=== PATIENT | male | born 2000 | race Caucasian/White ===

== ENCOUNTER → 2024-07-30 10:19 | Outpatient (BNVA) | payer BC, SELFPAY | PROVIDERS: Visit Provider Psychiatry & Neurology Psychiatry | DX: Z79.899 Other long term (current) drug therapy (principal) | CPT/HCPCS: 80053; 80061; 83036; 84443; 85025 ==

== ENCOUNTER 2024-10-28 20:21 | Inpatient (IN) | payer BC, MEDICAID, SELFPAY ==
[2024-10-28 20:27] VITALS: BP 172/103; PULSE 92; RESP 17; TEMP 37.1; O2SAT 99; BMI 25.2
--- NOTE | 2024-10-28 20:58 | ED.C_ITS ---
HPI - Psych 2 General: Chief Complaint: Psychiatric Symptoms Stated Complaint: SI Time Seen by Provider: 10/28/24 20:36 History of Present Illness: 24-year-old male patient presenting with depression, suicidal ideation. He had a plan to slit his wrist. He has medications including buspirone citalopram and trazodone. He has not used these medications because of side effect he says. He has never been admitted for depression to the hospital. He denies intoxication. Related Data Previous Rx's ?Medication ?Instructions ?Recorded buspirone 5 mg tablet 5 mg PO BID PRN anxiety #60 tabs 09/17/24 citalopram 20 mg tablet (Celexa) 20 mg PO DAILY #30 ta bs 09/17/24 trazodone 50 mg tablet 50 mg PO DAILY PRN insomnia #30 09/17/24 tabs Allergies Allergy/AdvReac Type Severity Reaction Status Date / Time No Known Allergies Allergy Verified 09/17/24 17:02 [facility] ED 2 PFSH: Medical History Psychiatric care Physical Exam 2 Const: COMMON NORMALS: no acute distress GENERAL APPEARANCE: cooperative; not ill appearing and not frail appearing HENMT: COMMON NORMALS: normocephalic, atraumatic and Normal external nose present HEAD & SCALP: normocephalic and atraumatic FACE & SINUS: normal facial exam and face symmetric NOSE: Normal external nose present Eye: COMMON NORMALS: Equal, round and reactive pupils present and EOMs intact bilaterally PUPIL: Yes Equal, round and reactive pupils present Neck/C-Spine: GENERAL: Yes trachea midline Chest: CHEST: Yes Symmetrical chest wall rise Resp: COMMON NORMALS: normal respiratory effort, No retractions, No use of accessory muscles and clear to auscultation bilaterally AUSCULTATION: clear to auscultation bilaterally Cardio: COMMON NORMALS: regular rate and regular rhythm RATE: regular rate RHYTHM: regular rhythm GI: COMMON NORMALS: Normal to inspection, nondistended, normoactive bowel sounds present Extremity: COMMON NORMALS: no pedal edema Neuro: KRISTY COMA SCALE: document GCS findings [place] coma scale eye opening: Spontaneous Kristy coma scale verbal response: Orientated Kristy coma scale motor response: Obey commands Kristy coma scale total score: 15 S ENSORY EXAM: Yes extremities (intact) Psych: COMMON NORMALS: speech normal SPEECH: Yes normal speech Skin: COMMON NORMALS: no rashes or lesions noted GENERAL SKIN EXAM: no rashes or lesions noted Course 2 Vital Signs: Vital signs: Vital Signs Temperature 98.8 F 10/28/24 20:27 Pulse Rate 79 10/28/24 23:04 Respiratory Rate 16 10/28/24 23:04 Blood Pressure 157/99 10/28/24 23:04 Pulse Oximetry 100 10/28/24 23:04 Oxygen Delivery Me thod Room Air 10/28/24 20:27 MDM - Psych Medical Decision Making Medically the patient is stable. We have a bed available here. Affidavit written. He is willing to stay. He will be admitted to NPU. Lab Data 10/28/24 21:21 10/28/24 21:21 Laboratory Results WBC 10.04 10^3/uL (3.29-11.43) 10/28/24 21: RBC 4.60 10^6/uL (3.85-5.65) 10/28/24 21:21 Hgb 14.40 g/dL (11.27-16.99) 10/28/24 21: Hct 43.6 % (37-53) 10/28/24 21: MCV 94.8 fl (82-101) 10/28/24 21: MCH 31.3 pg (27-33) 10/28/24 21: MCHC 33.0 g/dL (30-55) 10/28/24 21: RDW 12.6 % (12.1-15.1) 10/28/24 21: Plt Count 285 10^3/cmm (157-399) 10/28/24 21:21 MPV 9.3 fL (7.4-10.4) 10/28/24 21: Neut % (Auto) 73.8 % 10/28/24 21: Lymph % (Auto) 15.1 % 10/28/24 21: Grand % (Auto) 10.0 % 10/28/24 21: Eos % (Auto) 0.3 % 10/28/24 21: Baso % (Auto) 0.4 % 10/28/24: Neut # (Auto) 7.41 10^3/uL (1.8-7.7) 10/28/24 21:21 Lymph # (Auto) 1.5 10^3/uL (0.8-4.8) 10/28/24 21:21 Grand # (Auto) 1.0 10^3/uL (0.2-0.9) H 10/28/24 21:21 Eos # (Auto) 0.0 10^3/uL (0.0-0.8) 10/28/24 21:21 Baso # (Auto) 0.0 10^3/uL (0.0-0.1) 10/28/24 21:21 Nucleated RBC % (auto) 0 % 10/28/24 21:21 Nucleated RBCs # 0.0 /100WBC 10/28/24 21:21 Sodium 140 mmol/L (136-145) 10/28/24 21:21 Potassium 3.6 mmol/L (3.5-5.1) 10/28/24 21:21 Chloride 103 mmol/L (98-107) 10/28/24 21:21 Carbon Dioxide 25 mmol/L (22-29) 10/28/24 21:21 Anion Gap 15.6 (5-19) 10/28/24 21:21 BUN 10 mg/dL (6-20) 10/28/24 21:21 Creatinine 0.8 mg/dL (0.7-1.2) 10/28/24 21:21 GFR Calculation 120.9 mL/min (90-130) 10/28/24 21:21 Glucose 138 mg/dL (65-115) H 10/28/24 21:21 Calculated Osmolality 291 mOsm/kg (285-295) 10/28/24 21:21 Calcium 9.2 mg/dL (8.5-10.5) 10/28/24 21:21 Total Bilirubin 0.9 mg/dL (0.15-1.2) 10/28/24 21:21 AST 13 U/L (0-40) 10/28/24 21:21 ALT 16 U/L (0-41) 10/28/24 21:21 Alkaline Phosphatase 69 U/L (40-130) 10/28/24 21:21 Total Protein 7.4 g/dL (6.6-8.7) 10/28/24 21:21 Albumin 4.7 g/dL (3.5-5.2) 10/28/24 21:21 Globulin 2.7 g/dL (1.3-4.6) 10/28/24 21:21 Urine Color Yellow (Yellow) 10/28/24 21:05 Urine Appearance Clear (CLEAR) 10/28/24 21:05 Urine pH 5.5 (5-7) 10/28/24 21:05 Ur Specific [place] 1.023 (1.005-1.030) 10/28/24 21:05 Urine Protein Negative (Negative) 10/28/24 21:05 Urine Glucose (UA) Negative (Normal) 10/28/24 21:05 Urine Ketones Trace (Negative) 10/28/24 21:05 Urine Blood Negative (Negative) 10/28/24 21:05 Urine Nitrate Negative (Negative) 10/28/24 21: Urine Bilirubin Negative (Negative) 10/28/24 21:05 Urine Urobilinogen 1.0 mg/dL (Negative) 10/28/24 21:05 Ur Leukocyte Esterase Negative (Negative) 10/28/24 21:05 Urine RBC 0-2 /hpf (0-2) 10/28/24 21:05 Urine WBC 0-5 /hpf (0-5) 10/28/24 21:05 Ur Squamous Epith Cells 0-5 /hpf (0-5) 10/28/24 21:05 Amorphous Sediment Not Reportable 10/28/24 21:05 Urine Bacteria None seen /hpf (NONE) 10/28/24 21:05 Hyaline Casts 0.40 /lpf 10/28/24 21:05 Salicylates < 0.3 mg/dL (3-10) L 10/28/24 21:21 Urine Opiates Screen Negative ng/mL (Negative) 10/28/24 21:05 Acetaminophen < 5.0 ug/mL (10-30) L 10/28/24 21:21 Ur Barbiturates Screen Negative ng/mL (Negative) 10/28/24 21:05 Ur Phencyclidine Scrn Negative ng/mL (Negative) 10/28/24 21:05 Ur Amphetamines Screen Positive ng/mL (Negative) H 10/28/24 21:05 U Benzodiazepines Scrn Negative ng/mL (Negative) 10/28/24 21:05 Urine Cocaine Screen Negative ng/mL (Negative) 10/28/24 21:05 U Marijuana (THC) Screen Negative ng/mL (Negative) 10/28/24 21:05 Ethyl Alcohol < 10 mg/dL (0-10) 10/28/24 21:21 No radiology studies performed this visit Discharge Plan Discharge Patient Disposition: Admitted As Inpatient Admit Provider: Delio Carbone Clinical Impression: Suicidal ideation Condition: Stable Coding Level of Care Code ED Special Procedures Tech for Janette Packer
[2024-10-28 21:21] LABS: Bilirubin Urine Negative (Negative); Blood Urine Negative (Negative); Glucose Urine UA Negative (Normal); Ketones Urine Trace (Negative); Leukocyte Esterase Urine Negative (Negative); Nitrate Urine Negative (Negative); Protein Urine Negative (Negative); Specific Gravity, Urine 1.023 (1.005-1.030); Urine Appearance Clear (CLEAR); Urine Color Yellow (Yellow); pH Urine 5.5 (5-7)
[2024-10-28 21:27] LABS: Add Urine Microscopic? YES; Bacteria Urine None Seen /hpf; RBC Urine 0-2 /hpf (0-2); Squamous Epithelial Cell Urine 0-5 /hpf (0-5); WBC Urine 0-5 /hpf (0-5)
[2024-10-28 21:28] LABS: Amphetamines Screen Urine Positive (Negative); Barbiturates Screen Urine Negative (Negative); Benzodiazepines Screen Urine Negative (Negative); Cocaine Screen Urine Negative (Negative); Opiate Screen Urine Negative (Negative); PCP Screen Urine Negative (Negative); THC Screen Urine Negative (Negative)
[2024-10-28 21:34] LABS: Basophils % 0.4 %; Eosinophils % 0.3 %; Hematocrit 43.6 % (37-53); Lymphocytes # 1.5 10^3/uL (0.8-4.8); Lymphocytes % 15.1 %; Mean Corpuscular Hemoglobin 31.3 pg (27-33); Mean Corpuscular Volume 94.8 fl (82-101); Mean Platelet Volume 9.3 fL (7.4-10.4); Neutrophils # 7.41 10^3/uL (1.8-7.7); Neutrophils % 73.8 %; Nucleated Red Blood Cells % 0 %; Platelet Count 285 10^3/cmm (157-399); Red Cell Distribution Width 12.6 % (12.1-15.1); White Blood Count 10.04 10^3/uL (3.29-11.43)
[2024-10-28 21:44] LABS: Alanine Aminotransferase 16 U/L (0-41); Albumin Level 4.7 g/dL (3.5-5.2); Alkaline Phosphatase 69 U/L (40-130); Anion Gap 15.6 (5-19); Aspartate Amino Transferase 13 U/L (0-40); Blood Urea Nitrogen 10 mg/dL (6-20); Calcium 9.2 mg/dL (8.5-10.5); Carbon Dioxide 25 mmol/L (22-29); Chloride 103 mmol/L (98-107); Creatinine Clr Calc Pharmacy 136.6284; Globulin 2.7 g/dL (1.3-4.6); Glomerular Filtration Rate 120.9 mL/min (90-130); Glucose 138 mg/dL (65-115); Osmolality Calculated 291 mOsm/kg (285-295); Potassium 3.6 mmol/L (3.5-5.1); Sodium 140 mmol/L (136-145); Total Bilirubin 0.9 mg/dL (0.15-1.2); Total Protein 7.4 g/dL (6.6-8.7)
[2024-10-28 21:45] LABS: Acetaminophen < 5.0 ug/mL (10-30); Alcohol Level < 10 mg/dL (0-10); Salicylate < 0.3 mg/dL (3-10)
[2024-10-28] MEDS: nicotine 21 mg Patch 1 PATCH TRANSDERMA (23:01)
[2024-10-28 23:04] VITALS: BP 157/99; PULSE 79; RESP 16; O2SAT 100
--- NOTE | 2024-10-28 23:21 | PC.NURSE ---
nicotine patch removed from patient left upper arm as requested by psychiatric provider 2ndary to possible nightmares. pt instructed of accessibility of lozenges and gum. pt denies further questions/cocnerns at this time.
[2024-10-29 00:11] VITALS: BP 156/85; PULSE 75; RESP 18; TEMP 37.2; O2SAT 100
[2024-10-29] MEDS: nicotine 4 mg lozenge MUCOUS MEM ×2 (00:49→17:35)
[2024-10-29 06:00] VITALS: BP 133/74; PULSE 68; RESP 17; TEMP 36.6; O2SAT 98
[2024-10-29] MEDS: nicotine 21 mg Patch 1 PATCH TRANSDERMA (07:05)
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
[2024-10-29] MEDS: hyDROXYzine 25 mg Capsule 50 MG PO ×2 (11:46→19:53)
[2024-10-29 14:00] VITALS: BP 132/81; PULSE 67; RESP 18; TEMP 36.3; O2SAT 98
[2024-10-29 19:22] VITALS: BP 123/64; PULSE 78; RESP 16; TEMP 36.6; O2SAT 97
[2024-10-30 06:00] VITALS: BP 129/76; PULSE 71; RESP 16; O2SAT 98
[2024-10-30] MEDS: nicotine 4 mg lozenge MUCOUS MEM ×4 (06:27→20:44)
[2024-10-30] MEDS: buPROPion XL (24 HR) 150 mg Tablet PO (08:46)
--- NOTE | 2024-10-30 10:00 | P.NPUPN_ITS ---
Subjective NPU 2 Subjective: Patient presented today reporting that he feels like things have been improving with the initiation of the medication. He denies any issues with the medication and reports that he is really happy because it feels very different than when he was taking the Celexa. We discussed monitoring his improvement for a little while longer and working with the social work team on appropriate follow-up. He denied any side effects of the medication. Mental Status Exam 2 MSE Comments: This is a well-nourished, well-developed, white male, in hospital scrubs with adequate grooming and limited eye contact. No abnormal movements. Cooperative with exam in mild distress. Speech was decreased rate and volume. Mood described depressed feeling the medication is working; affect congruent. Thought process, organized. Thought content: patient denied current suicidal or homicidal ideation but was having some thoughts about suicide prior to admission; patient denied delusions and none were noted; patient denied any auditory or visual hallucinations. Attention, concentration, and memory appeared intact, but none were formally tested. He was alert and oriented times three. Insight appears fair, but judgment is poor. Impulse control is impaired. Vitals/I&O/Wt Last Vital Signs Temp 97.8 F 10/29/24 19:22 Pulse 71 10/30/24 06:00 Resp 16 10/30/24 06:00 BP 129/76 10/30/24 06:00 Pulse Ox 98 10/30/24 06:00 O2 Del Method Room Air 10/29/24 14:00 Weight last 48 hrs Weight 71.033 kg Data NPU 10/28/24 21:21 10/28/24 21:21 A&P Assessment and plan (1) Methamphetamine abuse in remission: (2) Legal problem: (3) Suicidal ideation: (4) Major depressive disorder, recurrent: Plan This is a 24-year-old white male with a significant history of addiction as well as depression and anxiety with treatment earlier this year that he discontinued and then attempted to restart those medications with a poor outcome who presents with suicidal ideation and a desire to initiate medication that might be helpful for his symptoms. He endorses significant sobriety without any concerns for use over the past year. 1. Encourage individual, group and milieu therapy. 2. Recommend sober living treatment at the highest level of care to which the patient is willing to commit. 3. Continue q-15 minute checks for safety 4. Started Wellbutrin XL 150 mg every morning. 5. Obtain collateral information. PDMP PDMP Reviewed: Not Reviewed Involuntary Hold Information 2 Hold Status: Date/Time Hold Expires: 10/31/25 Attestations NPU 2 Medical Necessity Statement*: Inpatient hospitalization is medically necessary and the clinically appropriate intervention at this time.? We will monitor/initiate medications and make changes as indicated.? The patient?s likely length of stay 2-4 days. Coding Level of Care Code Acute Code for [facility] Fwd Diagnoses Methamphetamine abuse in remission F15.11 Legal problem Z65.3 Suicidal ideation R45.851 Major depressive disorder, recurrent F33.9
[2024-10-30 14:00] VITALS: BP 127/75; PULSE 77; RESP 18; TEMP 37; O2SAT 97
[2024-10-30 19:43] VITALS: BP 128/78; PULSE 88; RESP 17; TEMP 36.7; O2SAT 96
[2024-10-30] MEDS: hyDROXYzine 25 mg Capsule 50 MG PO (20:12)
[2024-10-30] MEDS: trazodone 50 mg Tablet PO (20:12)
[2024-10-31 06:00] VITALS: BP 127/86; PULSE 78; RESP 18; TEMP 36.6; O2SAT 98
[2024-10-31] MEDS: nicotine 4 mg lozenge MUCOUS MEM ×2 (07:40→11:47)
[2024-10-31] MEDS: buPROPion XL (24 HR) 150 mg Tablet PO (09:18)
[2024-10-31 14:00] VITALS: BP 126/79; PULSE 67; RESP 18; TEMP 36.6; O2SAT 97
[2024-10-31] MEDS: nicotine 21 mg Patch 1 PATCH TRANSDERMA (14:47)
--- NOTE | 2024-10-31 18:31 | P.NPUPN_ITS ---
Subjective NPU 2 Subjective: Patient presented today reporting that things are going well. He endorsed that he was having no difficulties adjusting to the medication and that the medications seem to be working well. He endorsed that he feels that he will be able to manage things moving forward and we discussed the risks, benefits and alternatives about discharge in the morning and he understood and agreed to proceed as is documented in this note. Mental Status Exam 2 MSE Comments: This is a well-nourished, well-developed, white male, in hospital scrubs with adequate grooming and limited eye contact. No abnormal movements. Cooperative with exam in mild distress. Speech was more normal rate and volume. Mood described better; affect congruent. Thought process, organized. Thought content: patient denied current suicidal or homicidal ideation but was having some thoughts about suicide prior to admission; patient denied delusions and none were noted; patient denied any auditory or visual hallucinations. Attention, concentration, and memory appeared intact, but none were formally tested. He was alert and oriented times three. Insight appears fair, but judgment is poor. Impulse control is improving. Vitals/I&O/Wt Last Vital Signs Temp 97.9 F 10/31/24 14:00 Pulse 67 10/31/24 14:00 Resp 18 10/31/24 14:00 BP 126/79 10/31/24 14:00 Pulse Ox 97 10/31/24 14:00 O2 Del Method Room Air 10/31/24 06:00 Data NPU 10/28/24 21:21 10/28/24 21:21 A&P Assessment and plan (1) Methamphetamine abuse in remission: (2) Legal problem: (3) Suicidal ideation: (4) Major depressive disorder, recurrent: Plan This is a 24-year-old white male with a significant history of addiction as well as depression and anxiety with treatment earlier this year that he discontinued and then attempted to restart those medications with a poor outcome who presents with suicidal ideation and a desire to initiate medication that might be helpful for his symptoms. He endorses significant sobriety without any concerns for use over the past year. 1. Encourage individual, group and milieu therapy. 2. Recommend sober living treatment at the highest level of care to which the patient is willing to commit. 3. Continue q-15 minute checks for safety 4. Started Wellbutrin XL 150 mg every morning. 5. Obtain collateral information. Tentative plan for discharge in the morning. PDMP PDMP Reviewed: Not Reviewed Involuntary Hold Information 2 Hold Status: Date/Time Hold Expires: 10/31/25 Attestations NPU 2 Medical Necessity Statement*: Inpatient hospitalization is medically necessary and the clinically appropriate intervention at this time.? We will monitor/initiate medications and make changes as indicated.? The patient?s likely length of stay 1-3 days. Coding Level of Care Code Acute Code for g Fwd Diagnoses Methamphetamine abuse in remission F15.11 Legal problem Z65.3 Suicidal ideation R45.851 Major depressive disorder, recurrent F33.9
[2024-10-31] MEDS: trazodone 50 mg Tablet PO (20:23)
[2024-10-31] MEDS: hyDROXYzine 25 mg Capsule 50 MG PO (20:23)
[2024-10-31 20:45] VITALS: BP 134/77; PULSE 86; RESP 17; TEMP 36.6; O2SAT 98
[2024-11-01 06:00] VITALS: BP 119/78; PULSE 72; RESP 18; O2SAT 98
[2024-11-01] MEDS: nicotine 4 mg lozenge MUCOUS MEM ×2 (06:56→09:39)
[2024-11-01] MEDS: buPROPion XL (24 HR) 150 mg Tablet PO (08:14)
[2024-11-01] MEDS: nicotine 2 mg Gum BUCCAL (11:40)
[2024-11-01 12:18] VITALS: BP 119/78; PULSE 72; RESP 18; O2SAT 98
== END 2024-11-01 12:30 | disposition home or self-care (01) | DRG 885 ==
LOC: ER 21:16 → NP 23:10
PROVIDERS: Admitting Provider Psychiatry & Neurology Psychiatry; Emergency Provider Emergency Medicine; Visit Provider Psychiatry & Neurology Psychiatry
DX: F33.9 Major depressive disorder, recurrent, unspecified (principal); R45.851 Suicidal ideations; F15.11 Other stimulant abuse, in remission; F41.9 Anxiety disorder, unspecified
CPT/HCPCS: 36415; 80053; 80306; 80307; 81001; 85025; 97150; 97165; 99285; J9999